=== PATIENT | male | born 1985 | race African-American/Black ===

== ENCOUNTER 2017-05-02 15:01 | Emergency (ER) | payer MEDICAID ==
[~2017-05-02] VITALS: Ht 167.6 cm; Wt 82.0 kg
[2017-05-02 20:53] LABS: CLARITY URINE CLEAR (CLEAR); COLOR URINE YELLOW (YELLOW); KETONES URINE TRACE (NEGATIVE); LEUKOCYTE ESTERASE URINE NEGATIVE (NEGATIVE); NITRITE URINE NEGATIVE (NEGATIVE); OCCULT BLOOD URINE NEGATIVE (NEGATIVE); PH URINE 5.5 (4.5-8.0); PROTEIN URINE TRACE (NEGATIVE); SPECIFIC GRAVITY URINE 1.042 (1.005-1.030)
[2017-05-02 20:55] LABS: BASOPHILS % 0.9 % (0.0-2.0); EOSINOPHILS % 3.6 % (0.0-5.0); HEMATOCRIT. 39.2 % (42.0-52.0); HEMOGLOBIN. 13.4 g/dL (14.0-18.0); LYMPHOCYTES % 20.8 % (20.0-50.0); MEAN CORPUSCULAR HEMOGLOBIN 32.3 pg (28.0-32.0); MEAN CORPUSCULAR VOLUME 94.8 fL (80.0-94.0); MEAN PLATELET VOLUME 7.6 fl (7.4-10.4); MONOCYTES % 9.5 % (2.0-8.0); NEUTROPHILS % 65.2 % (40.0-76.0); PLATELET 396 x1000/uL (130-400); RED BLOOD CELL COUNT 4.14 mill/uL (4.7-6.1); RED CELL DISTRIBUTION WIDTH 14.9 % (11.6-14.6)
[2017-05-02 21:04] LABS: CARBON DIOXIDE 29 mEq/L (21-32); CHLORIDE 105 mEq/L (98-107); ETHANOL BLOOD < 10 mg/dL
[2017-05-02 21:39] LABS: *AMPHETAMINES SCREEN URINE PRESUMTIVE POSITIVE (NEGATIVE); *BARBITURATES SCREEN URINE NEGATIVE (NEGATIVE); *BENZODIAZEPINES SCREEN URINE NEGATIVE (NEGATIVE); *COCAINE SCREEN URINE PRESUMTIVE POSITIVE (NEGATIVE); CANNABINOID URINE SCREEN PRESUMTIVE POSITIVE (NEGATIVE); METHADONE URINE SCREEN NEGATIVE (NEGATIVE); OPIATES URINE SCREEN NEGATIVE (NEGATIVE); PHENCYCLIDINE URINE SCREEN PRESUMTIVE POSITIVE (NEGATIVE)
[2017-05-03] MEDS ORDERED: LORAZEPAM 2MG/ML CPJ IM PRN (06:30)
[2017-05-03] MEDS ORDERED: OLANZAPINE 10 MG/VIAL IM ONE (12:45)
[2017-05-04] MEDS ORDERED: OLANZAPINE 10 MG/VIAL IM NR (01:45)
[2017-05-04] MEDS ORDERED: LORAZEPAM 1MG TABLET PO ONE (01:45)
[2017-05-04 16:24] VITALS: BP 136/81
== END 2017-05-04 16:55 ==
LOC: ER 15:59
DX: T40.991A Poisoning by other psychodysleptics [hallucinogens], accidental (unintentional), initial encounter (principal); T40.7X1A Poisoning by cannabis (derivatives), accidental (unintentional), initial encounter; T40.5X1A Poisoning by cocaine, accidental (unintentional), initial encounter; T43.621A Poisoning by amphetamines, accidental (unintentional), initial encounter; F20.9 Schizophrenia, unspecified; F17.200 Nicotine dependence, unspecified, uncomplicated; F31.9 Bipolar disorder, unspecified; Z59.0 Homelessness; Y92.89 Other specified places as the place of occurrence of the external cause
CPT/HCPCS: 36415; 80048; 80305; 80307; 80329; 81001; 85025; 96372; 99285; G0482; J2060; J3490; Z7610

== ENCOUNTER 2025-01-11 02:03 | Emergency (ER) | payer MEDICAID, OTHER ==
[~2025-01-11] VITALS: Ht 175.3 cm; Wt 100.0 kg
[2025-01-11 02:04] VITALS: O2SAT 100
[2025-01-11] MEDS: IBUPROFEN 600MG TABLET PO ONE (02:22)
[2025-01-11] MEDS ORDERED: IBUP-1455 MT (02:55)
[2025-01-11 03:20] VITALS: BP 139/103; PULSE 107; RESP 20; TEMP 36.9; O2SAT 96
== END 2025-01-11 03:23 | disposition home or self-care (01) ==
LOC: ER 02:03
DX: M25.562 Pain in left knee (principal); M17.12 Unilateral primary osteoarthritis, left knee; F10.90 Alcohol use, unspecified, uncomplicated; F12.90 Cannabis use, unspecified, uncomplicated; W22.8XXA Striking against or struck by other objects, initial encounter; Y93.89 Activity, other specified; Y92.89 Other specified places as the place of occurrence of the external cause; Y99.8 Other external cause status; Y90.9 Presence of alcohol in blood, level not specified
CPT/HCPCS: 29505; 73560; 99283